=== PATIENT | female | born 1940 | race Caucasian/White ===

== ENCOUNTER 2021-02-07 16:24 | Emergency (ER) | payer MEDICARE, OTHER ==
[2021-02-07 18:52] LABS: HEMOGLOBIN 13.6 gm/dl (12.3-15.3); RED BLOOD COUNT 4.3 M/UL (4.00-5.10); WHITE BLOOD COUNT 5.5 K/UL (4.5-11.0)
[2021-02-07 19:21] LABS: BUN/CREATININE RATIO 15 (0-10)
== END 2021-02-07 22:46 | disposition home or self-care (01) ==
LOC: ER1 16:24
PROVIDERS: Emergency Medicine
DX: J40 Bronchitis, not specified as acute or chronic (principal); I48.20 Chronic atrial fibrillation, unspecified; I48.92 Unspecified atrial flutter; E78.5 Hyperlipidemia, unspecified; I11.0 Hypertensive heart disease with heart failure; I50.9 Heart failure, unspecified; Z79.01 Long term (current) use of anticoagulants
CPT/HCPCS: 71045; 80053; 82550; 82553; 83874; 84439; 84443; 84484; 85025; 93005; 99285

== ENCOUNTER 2021-09-25 08:13 | Emergency (ER) | payer MEDICARE, OTHER ==
[2021-09-25 09:23] LABS: HEMOGLOBIN 13.8 gm/dl (12.3-15.3); RED BLOOD COUNT 4.1 M/UL (4.00-5.10); WHITE BLOOD COUNT 9.8 K/UL (4.5-11.0)
[2021-09-25 10:00] LABS: BUN/CREATININE RATIO 16 (0-10)
[2021-09-25] MEDS ORDERED: MACROBID 100 M100 MG PO (11:50)
== END 2021-09-25 12:02 | disposition home or self-care (01) ==
LOC: ER1 08:13
PROVIDERS: Physician Assistant
DX: N39.0 Urinary tract infection, site not specified (principal); K52.9 Noninfective gastroenteritis and colitis, unspecified; I11.0 Hypertensive heart disease with heart failure; I50.9 Heart failure, unspecified; R11.2 Nausea with vomiting, unspecified; R10.9 Unspecified abdominal pain; E78.5 Hyperlipidemia, unspecified; E07.9 Disorder of thyroid, unspecified
CPT/HCPCS: 71045; 80053; 81001; 82550; 82553; 83690; 83874; 84484; 85025; 87086; 93005; 96374; 99284; J0696

== ENCOUNTER → 2022-02-07 | Outpatient (CLI) | payer MEDICARE, OTHER ==
[~2022-02-07] MED LIST: MACROBID 100 M100 MG PO
== END ==
LOC: KOH-I 12:03
DX: M25.552 Pain in left hip (principal); M25.551 Pain in right hip; M41.9 Scoliosis, unspecified; M54.6 Pain in thoracic spine
CPT/HCPCS: 72070; 73522

== ENCOUNTER → 2022-04-13 | Outpatient (CLI) | payer MEDICARE, OTHER | LOC: KOH-I 13:00 | DX: N18.32 Chronic kidney disease, stage 3b (principal); N28.89 Other specified disorders of kidney and ureter | CPT/HCPCS: 76775 ==